=== PATIENT | female | born 1995 | race African-American/Black ===

== ENCOUNTER 2019-06-21 11:43 | Emergency (ER) | payer MEDICAID ==
[~2019-06-21] VITALS: Ht 162.6 cm; Wt 97.5 kg
[2019-06-21 12:20] VITALS: BP 118/68
[2019-06-21] MEDS ORDERED: LACTULOSE 20Gm/30ML SOLN PO ONE (13:15)
== END 2019-06-21 13:40 | disposition home or self-care (01) ==
LOC: ER 11:43
DX: O99.611 Diseases of the digestive system complicating pregnancy, first trimester (principal); K59.00 Constipation, unspecified; Z3A.08 8 weeks gestation of pregnancy